=== PATIENT | male | born 1985 | race African-American/Black ===

== ENCOUNTER 2020-07-09 19:41 | Emergency (ER) | payer OTHER ==
[~2020-07-09] VITALS: Ht 167.6 cm; Wt 90.7 kg
[2020-07-09 21:46] LABS: HEMATOCRIT 48.4 % (42.0-52.0); HEMOGLOBIN 16.3 gm/dL (14.0-18.0); MCH 31.4 pg (26.0-34.0); MCHC 33.7 g/dL (28.0-37.0); RBC 5.21 mil/uL (4.50-6.00); RDW 13.6 % (10.5-14.5); WBC 4.9 thou/uL (4.0-11.0)
[2020-07-09 21:55] LABS: CALCIUM 9.3 mg/dL (8.5-10.1); POTASSIUM 3.7 mmol/L (3.5-5.1)
[2020-07-09 22:06] VITALS: BP 147/85
== END 2020-07-09 22:06 | disposition home or self-care (01) ==
LOC: ER 19:41
PROVIDERS: Physician Assistant
DX: R51.9 Headache, unspecified (principal)